=== PATIENT | female | born 1995 | race Caucasian/White ===

== ENCOUNTER 2017-09-25 08:15 | Emergency (ER) | payer OTHER ==
[~2017-09-25] VITALS: Ht 160 cm; Wt 56.7 kg
--- NOTE | 2017-09-25 08:44 | ED THROAT/DENTAL COMPLAINT ---
History of Present Illness General Chief Complaint: Sore Throat, Dental Pain Stated Complaint: SORE THROAT Source: patient, family Exam Limitations: no limitations Vital Signs & Intake/Output Vital Signs & Intake/Output Vital Signs Date Time Temp Pulse Resp B/P B/P Pulse O2 O2 Flow FiO2 Mean Ox Delivery Rate 09/25 1105 97.7 77 20 108/57 100 Room Air 09/25 0817 98.0 118 20 118/80 99 Room Air Allergies Coded Allergies: NO KNOWN ALLERGIES (03/10/13) Reconcile Medications Amoxicillin 250 MG/5 ML SUSP.RECON 10 ML PO TID LYMPHADENITIS Amoxicillin/Potassium Clav (Augmentin 875-125 Tablet) 875 MG-125 MG TABLET 1 TAB PO BID ANTIBIOTIC, INFECTION (Reported) Norgestimate-Ethinyl Estradiol (Sprintec 28 Day Tablet) 0.25 MG-35 MCG TABLET 1 TAB PO DAILY BC (Reported) Ondansetron (Zofran Odt) 4 MG TAB.RAPDIS 1 TAB SL TID PRN NAUSEA Triage Note: PT TO ED C/O CONTINUED SORE THROAT. WENT TO THE WALK IN ON SUNDAY, HAD NEGATIVE STREP AND WAS SENT HOME ON PO ABX. STATES STILL HAS SORE THROAT, FEVERS AND NOW N/V. AFEBRILE. Triage Nurses Notes Reviewed? yes : No Patient currently breastfeeds: No HPI: Patient presents to the emergency department complaining of a sore throat that started on Sunday. Patient went to walk in center and was told that her strep was negative however she was started on Augmentin. Patient has been unable to tolerate the Augmentin. She states that she cannot eat or drink because everything she does she vomits back up. She also feels that her throat is getting more swollen. Patient states it hurts a lot to swallow. Patient denies any difficulty breathing. She states the pain is an aching pain that turns into a sharp pain whenever she swallows. There is no radiation. At its worst rates as 8 out of 10. Patient is up-to-date on her immunizations. Past History Travel History Traveled to [place] past 21 day No Medical History Any Pertinent Medical History? none Surgical History Surgical History: non-contributory Psychosocial History What is your primary language Wallisian Tobacco Use: Never used ETOH Use: occasional use Illicit Drug Use: denies illicit drug use Family History Hx Contributory? No Review of Systems Review of Systems Constitutional: Reports: see HPI, chills. EENTM: Reports: see HPI, throat pain. Respiratory: Reports: no symptoms. Cardiovascular: Reports: no symptoms. GI: Reports: no symptoms. Musculoskeletal: Reports: see HPI, neck pain. Skin: Reports: no symptoms. Neurological/Psychological: Reports: no symptoms. Immunologic/Allergic: Reports: no symptoms. Physical Exam Physical Exam General Appearance: well developed/nourished, alert, awake, anxious, moderate distress Head: atraumatic, normal appearance Eyes: Bilateral: PERRL, EOMI. Ears: Bilateral: canal normal, Tympanic normal. Nose: normal inspection Mouth/Throat: tonsillar exudate, tonsillar swelling Neck: lymphadenopathy (R), lymphadenopathy (L) Cardiovascular/Respiratory: normal breath sounds, normal peripheral pulses, regular rate/rhythm, no respiratory distress Neurologic/Psych: no motor/sensory deficits, awake, alert, oriented x 3, normal gait, normal mood/affect Core Measures ACS in differential dx? No Sepsis Present: No Sepsis Focused Exam Completed? No Progress Differential Diagnosis: odontogenic abscess, fariba-tonsillar abscess, strep pharyngitis Plan of Care: Orders Procedure Date/time Status URINALYSIS 09/25 842 Complete HUMAN BETA HCG SCREEN 09/25 842 Complete COMPREHENSIVE METABOLIC PANEL 09/25 842 Complete CBC WITHOUT DIFFERENTIAL 09/25 842 Complete Laboratory Tests 09/25/17 1001: Urinalysis LIGHT H, Urine Color YEL, Urine Clarity HAZY H, Urine pH 6.5, Ur Specific [place] <= 1.005, Urine Protein TRACE H, Urine Ketones TRACE H, Urine Nitrite NEG, Urine Bilirubin NEG, Urine Urobilinogen 0.2, Ur Leukocyte Esterase SMALL H, Ur Microscopic SEDIMENT EXAMINED, Urine RBC 1-3, Urine WBC 5-10 H, Ur Epithelial Cells MOD H, Urine Bacteria FEW H, Urine Mucus RARE, Micro UA Comment BUDDING YEAST H, Urine Hemoglobin SMALL H, Urine Glucose NEG 09/25/17 0906: Anion Gap 11, Estimated GFR > 60, BUN/Creatinine Ratio 11.3, Glucose 107 H, Calcium 8.8, Total Bilirubin 0.6, AST 18, ALT 21, Alkaline Phosphatase 45, Total Protein 6.9, Albumin 3.6, Globulin 3.3, Albumin/Globulin Ratio 1.1, Total Beta HCG NEGATIVE, CBC w Diff NO MAN DIFF REQ, RBC 4.28, MCV 88.8, MCH 30.0, MCHC 33.8, RDW 13.0, MPV 8.6, Gran % 89.2 H, Lymphocytes % 7.7 L, Monocytes % 3.0, Eosinophils % 0, Basophils % 0.1, Absolute Granulocytes 13.3 H, Absolute Lymphocytes 1.1 L, Absolute Monocytes 0.4, Absolute Eosinophils 0, Absolute Basophils 0 Diagnostic Imaging: Viewed by Me: CT Scan. Discussed w/RAD: CT Scan. Radiology Impression: PATIENT: DOUGLAS DE OLIVEIRA PRESENT AGE: 22 PATIENT ACCOUNT NO: [id number] : 96 LOCATION: [facility] ORDERING PHYSICIAN: Spenser Huynh MD SERVICE DATE: 09/25/17 EXAM TYPE: CAT - CT NECK W IV CONTRAST CT NECK WITH CONTRAST CLINICAL INFORMATION: Severe lymphadenopathy and pain. Question abscess. COMPARISON: None available. TECHNIQUE: A multidetector CT acquisition of the neck is obtained following the administration of 95 mL of Optiray 320 intravenous contrast without complication. FINDINGS: There is lymphadenopathy along the left greater than right jugular chains, greatest within the jugulodigastric regions bilaterally. Some of the lymph nodes along the left jugular chain exhibit central low attenuation. There is mild stranding within the fat of the anterior posterior triangles of the neck, favoring these findings. The sequela of lymphadenitis. No discrete drainable fluid collections to suggest abscess are identified. No definite primary superficial mucosal space lesion is identified with assessment limited by close mucosal apposition. The palatine tonsils exhibit slightly heterogeneous attenuation which can be correlated with direct visual inspection to exclude tonsillitis. No discrete peritonsillar abscess. There are no retropharyngeal fluid collections. The parotid glands are homogeneous in attenuation. The submandibular glands are normal. The thyroid gland is normal. No contour abnormality or pathologic enhancement is seen within the oral cavity or pharyngeal mucosal space. No retropharyngeal fluid collection is seen. The laryngeal structures are normal. The parapharyngeal fat is preserved. The carotid sheath vasculature opacify normally. The superior mediastinum is unremarkable. Trace left pleural effusion. The mastoid air cells and visualized portions of the paranasal sinuses are well-aerated. The imaged portions of the brain parenchyma are unremarkable. IMPRESSION: - Left greater than right cervical lymphadenopathy, concentrated along the jugular chains bilaterally. Some of the lymph nodes along the left jugular chain exhibit central low attenuation which could reflect suppurative lymphadenitis in the setting of fever and leukocytosis. In the absence of infectious symptoms it would be difficult to exclude pathologic metastatic lymph nodes. Following conservative treatment, follow-up would be recommended to document resolution of these findings. - The palatine tonsils exhibit slightly heterogeneous attenuation which can be correlated with direct visual inspection to exclude tonsillitis. No discrete peritonsillar abscess. There are no retropharyngeal fluid collections. - Trace left pleural effusion. DICTATED BY: Hong Cordoba MD DATE/TIME DICTATED:09/25/171141 [employer]OCIATE:ADELA DATE/TIME TRANSCRIBED:1141 CONFIDENTIAL, DO NOT COPY WITHOUT APPROPRIATE AUTHORIZATION. < Electronically signed in Other Vendor System> SIGNED BY: Hong Cordoba MD 09/25/17 1206 Departure Departure Disposition: HOME OR SELF CARE Condition: Stable Clinical Impression Primary Impression: Lymphadenitis Referrals: Dariela OLIVIER,Vishal Huynh Patient Has No Primary Care Dr (PCP/Family) Additional Instructions: Stop the Augmentin and switched to the liquid antibiotic. Take to speak teaspoons 3 times a day for 10 days. Take Zofran as needed for nausea. Follow up with the ear nose and throat doctor. Return if symptoms worsen or for any concerns. Departure Forms: Customer Survey General Discharge Information Prescriptions: Current Visit Scripts Amoxicillin 10 ML PO TID #300 ML Ondansetron (Zofran Odt) 1 TAB SL TID PRN NAUSEA #10 TAB
[2017-09-25] MEDS ORDERED: AUGMENTIN 875-1 EACH PO (09:16)
[2017-09-25] MEDS ORDERED: SPRINTEC 28 DA1 EACH PO (09:17)
[2017-09-25 09:25] LABS: ABSOLUTE BASOPHIL COUNT 0 /CUMM (0.0-0.2); ABSOLUTE EOSINOPHIL COUNT 0 /CUMM (0.0-0.7); ABSOLUTE GRANULOCYTE CT 13.3 /CUMM (1.4-6.5); ABSOLUTE LYMPH COUNT 1.1 /CUMM (1.2-3.4); ABSOLUTE MONOCYTE COUNT 0.4 /CUMM (0.10-0.60); BASOPHIL % 0.1 % (0.0-2.0); EOSINOPHIL % 0 % (0-5); MEAN CORPUSCULAR HGB CONC 33.8 G/DL (33.0-37.0); MEAN CORPUSCULAR VOLUME 88.8 FL (81.0-99.0); MEAN PLATELET VOLUME 8.6 FL (7.4-10.4); PLATELET COUNT 255 /CUMM (130-400); RED BLOOD CELL CT 4.28 /CUMM (4.20-5.40); WHITE BLOOD CELL COUNT 14.9 /CUMM (4.8-10.8)
[2017-09-25 09:39] LABS: GRANULOCYTE % 89.2 % (42.2-75.2)
--- NOTE | 2017-09-25 12:05 | CT SCAN REPORT ---
CT NECK WITH CONTRAST CLINICAL INFORMATION: Severe lymphadenopathy and pain. Question abscess. COMPARISON: None available. TECHNIQUE: A multidetector CT acquisition of the neck is obtained following the administration of 95 mL of Optiray 320 intravenous contrast without complication. FINDINGS: There is lymphadenopathy along the left greater than right jugular chains, greatest within the jugulodigastric regions bilaterally. Some of the lymph nodes along the left jugular chain exhibit central low attenuation. There is mild stranding within the fat of the anterior posterior triangles of the neck, favoring these findings. The sequela of lymphadenitis. No discrete drainable fluid collections to suggest abscess are identified. No definite primary superficial mucosal space lesion is identified with assessment limited by close mucosal apposition. The palatine tonsils exhibit slightly heterogeneous attenuation which can be correlated with direct visual inspection to exclude tonsillitis. No discrete peritonsillar abscess. There are no retropharyngeal fluid collections. The parotid glands are homogeneous in attenuation. The submandibular glands are normal. The thyroid gland is normal. No contour abnormality or pathologic enhancement is seen within the oral cavity or pharyngeal mucosal space. No retropharyngeal fluid collection is seen. The laryngeal structures are normal. The parapharyngeal fat is preserved. The carotid sheath vasculature opacify normally. The superior mediastinum is unremarkable. Trace left pleural effusion. The mastoid air cells and visualized portions of the paranasal sinuses are well-aerated. The imaged portions of the brain parenchyma are unremarkable. IMPRESSION: - Left greater than right cervical lymphadenopathy, concentrated along the jugular chains bilaterally. Some of the lymph nodes along the left jugular chain exhibit central low attenuation which could reflect suppurative lymphadenitis in the setting of fever and leukocytosis. In the absence of infectious symptoms it would be difficult to exclude pathologic metastatic lymph nodes. Following conservative treatment, follow-up would be recommended to document resolution of these findings. - The palatine tonsils exhibit slightly heterogeneous attenuation which can be correlated with direct visual inspection to exclude tonsillitis. No discrete peritonsillar abscess. There are no retropharyngeal fluid collections. - Trace left pleural effusion.
[2017-09-25] MEDS ORDERED: ZOFRAN ODT4 M1 SL (12:09)
[2017-09-25] MEDS ORDERED: AMOXICILLI250 MG/51 PO (12:09)
[2017-09-25 12:15] VITALS: BP 110/72
== END 2017-09-25 12:16 ==
LOC: ERH 08:15
PROVIDERS: Emergency Medicine
DX: I88.9 Nonspecific lymphadenitis, unspecified (principal)
CPT/HCPCS: 81001; 96361; 96374; J0696